=== PATIENT | male | born 1960 | race Caucasian/White ===

== ENCOUNTER 2020-05-27 10:46 | Outpatient (CLI) | payer OTHER, SELFPAY | END 2020-05-27 10:47 | disposition home or self-care (01) | LOC: ANHCOVIDVC 10:46 | PROVIDERS: PCP Family Medicine | DX: Z23 Encounter for immunization (principal) | CPT/HCPCS: 0001A; 91300 ==

== ENCOUNTER 2020-06-17 10:46 | Outpatient (CLI) | payer OTHER, SELFPAY | END 2020-06-17 10:47 | disposition home or self-care (01) | LOC: ANHCOVIDVC 10:46 | PROVIDERS: PCP Family Medicine | DX: Z23 Encounter for immunization (principal) | CPT/HCPCS: 0002A; 91300 ==

== ENCOUNTER → 2020-06-25 16:37 | Outpatient (CLI) | payer OTHER, SELFPAY ==
--- NOTE | ~2020-06-25 | XR_ITS ---
XR cervical spine 4-5V DATE: 06/25/2020 17:02 INDICATION: Cervical radiculopathy TECHNIQUE: AP, lateral, swimmer's, open-mouth views COMPARISON: None FINDINGS: There is dorsal cervical curvature and mild cervical dextroscoliosis. C1 and C2 are normally aligned and the odontoid process is intact. No fracture or dislocation or lock ed facet or prevertebral soft tissue swelling. There is moderately severe degenerative disc disease at C4-5. There is severe degenerative disc disease at C5-6 and C6-7 and C7-T1. There is approximately 3.5 mm anterolisthesis at C7-T1. There is severe hypertrophic degenerative change of the apophyseal joints throughout the cervical spi ne. Uncovertebral joint spurring is noted at C4-5 and particularly C5-6 and C6-7. IMPRESSION: Reversal cervical curvature and mild dextroscoliosis Extensive degenerative changes of the cervical spine Reviewed, dictated and finalized at location A.
== END ==
PROVIDERS: PCP Family Medicine; Visit Provider Family Medicine
DX: M54.12 Radiculopathy, cervical region (principal); M50.30 Other cervical disc degeneration, unspecified cervical region
CPT/HCPCS: 72050

== ENCOUNTER → 2020-07-15 10:15 | Outpatient (CLI) | payer OTHER, SELFPAY ==
--- NOTE | ~2020-07-15 | MR_ITS ---
EXAMINATION: MR cervical spine wo con DATE: 07/15/2020 10:52 INDICATION: Left-sided cervical radiculopathy. Neck pain. TECHNIQUE: Magnetic resonance imaging (MRI) of the cervical spine was performed without intravenous c ontrast. Sequences included sagittal T2-weighted FSE, sagittal STIR FSE, sagittal T1-weighted FSE, ax ial MERGE, and axial T2-weighted FSE. COMPARISON: Cervical spine radiographs 06/25/20 FINDINGS: There is 9 degrees dextrocurvature of cervical spine. There is kyphosis of cervical spine. There is 2 mm retrolisthesis of C5 on C6 and 3 mm anterolisthesis of C7 on T1. Vertebral body heights are normal. There is moderately decreased disc height at C4-C5, severely decreased disc height at C5 -C6, and moderately decreased disc height at C6-C7 and C7-T1. The spinal cord signal intensity is nor mal. The following disc levels are specifically discussed: C2-C3: There is a central protrusion. There is severe right and mild left uncovertebral joint osteoar thritis. There is severe right and moderate left facet joint osteoarthritis. There is mild bilateral neural foraminal stenosis. There is no central canal stenosis. C3-C4: There is a central protrusion. There is severe right and mild left uncovertebral joint osteoar thritis. There is severe right and moderate left facet joint osteoarthritis. There is moderate right and mild left neural foraminal stenosis. There is mild central canal stenosis with ventral indentatio n of spinal cord. C4-C5: The disc is bulging. There is severe bilateral uncovertebral joint osteoarthritis. There is mo derate and severe left facet joint osteoarthritis. There is mild right and moderate left neural gosia inal stenosis. There is mild central canal stenosis with ventral indentation of the spinal cord. C5-C6: The disc is bulging. There is severe bilateral uncovertebral joint osteoarthritis. There is mi ld right facet joint osteoarthritis. There is ankylosis of left facet joint with moderate hypertrophy . There is mild bilateral neural foraminal stenosis. There is mild central canal stenosis. C6-C7: The disc is bulging. There is severe bilateral uncovertebral joint osteoarthritis. There is mi ld bilateral facet joint osteoarthritis. There is moderate right and mild left neural foraminal steno sis. There is mild central canal stenosis. C7-T1: The disc is bulging. There is severe bilateral uncovertebral joint osteoarthritis. There is se ciara bilateral facet joint osteoarthritis. There is moderate and mild left neural foraminal stenosis. There is mild central canal stenosis. IMPRESSION: 1. Severe cervical spondylosis. Reviewed, dictated and finalized at location A.
== END ==
PROVIDERS: PCP Family Medicine; Visit Provider Family Medicine
DX: M47.22 Other spondylosis with radiculopathy, cervical region (principal)
CPT/HCPCS: 72141

== ENCOUNTER 2021-12-02 16:11 | Outpatient (CLI) | payer OTHER, SELFPAY ==
--- NOTE | ~2021-12-02 | US_ITS ---
EXAMINATION: US venous doppler LE RT DATE: 12/02/2021 16:47 INDICATION: M79.89 - Other specified soft tissue disorders . TECHNIQUE: Grayscale images without and with compression and Doppler images of the right lower extrem ity veins were obtained. COMPARISON: None FINDINGS: Occlusive thrombus in the distal popliteal and posterior tibial veins. The right common femoral vein, profunda (deep) femoral vein, femoral vein, proximal popliteal vein, peroneal vein, and greater saph enous vein are patent. IMPRESSION: Acute deep venous thrombosis involving the popliteal and posterior tibial veins. Attempts to reach provider by Dr. Mcghee at the phone number given were unsuccessful. One known office for the provider was closed, the answering service was not able to make contact. Radiology staff clementine Gonzalez then made contact to a second office. Results subsequently reported telephonically to [facility] by radiology staff member Gonzalez at 5:25 PM on 12/02/2021. Dr. Huffman communicated the treatment plan directly to the patient at that time. Reviewed, dictated and finalized at location K. IMPRESSION: Acute deep venous thrombosis involving the popliteal and posterior tibial veins . Attempts to reach provider by Dr. Mcghee at the phone number given were unsucces sful. One known office for the provider was closed, the answering service was n ot able to make contact. Radiology staff member Gonzalez then made contact to a [facility] office. Results subsequently reported telephonically to [facility] by radio logy staff member Gonzalez at 5:25 PM on 12/02/2021. Dr. Huffman communicated the treatment plan directly to the patient at that time.
== END 2021-12-02 16:12 | disposition home or self-care (01) ==
LOC: ANHIMG 16:12
PROVIDERS: PCP Family Medicine; Visit Provider Physician Assistant
DX: M79.89 Other specified soft tissue disorders (principal); I82.441 Acute embolism and thrombosis of right tibial vein
CPT/HCPCS: 93971

== ENCOUNTER 2024-11-12 12:27 | Emergency (ER) | payer OTHER, SELFPAY ==
[2024-11-12 12:40] VITALS: BP 121/79; PULSE 78; RESP 18; TEMP 36.6; O2SAT 99
--- NOTE | 2024-11-12 13:23 | ED_ITS ---
HPI - Back Pain/Injury General Chief Complaint: Back Pain/Injury Stated Complaint: L Leg Pain Time Seen by Provider: 11/12/24 13:23 Source: patient Mode of arrival: ambulatory Limitations: no limitations History of Present Illness HPI Narrative: 64 yo M presents with pain to L buttock/hip radiating down L leg for 2 days. Started after sitting on metal bleachers for sports event. Ambulatory with slight limp. Denies numbness/tingling. No loss of bowel or bladder. Has been taking naproxen and also cyclobenzaprine which is his 's prescription. All systems reviewed and negative except as noted above. Related Data Home Medications ?Medication ?Instructions ?Recorded ?Confirmed ?Last Taken ?Type primidone 50 mg tablet mg PO 11/03/23 05/24/24 Unkn own History Allergies Allergy/AdvReac Type Severity Reaction Status Date / [facility] AdvReac Severe parkinsonis Verified 11/12/24 12:55 m [facility] Past Medical History Medical History Drug-induced parkinsonism Parsonage-Garcia syndrome Trigger point of left shoulder region Overweight (BMI 25.0-29.9) Social History Social History Social History: Caffeine-daily Smoking status: Never smoker Second hand tobacco smoke exposure: No Alcohol intake: current Drinks per week: 1 Alcohol use details: occasionally Substance use: never Substance use type: does not use Lack of Transportation: No Lack of Food: Never True Current Housing: I Have Housing Concerned About Future Housing: No Difficulty Paying Gas/Electric Bills: No Difficulty Paying for Meds: No Currently Unemployed: No Education: Bachelor's Degree Difficulty w/ Childcare or Family Care: No Living arrangements: with family Occupation/Education: occupation Comments At time of signature, agree with nursing past medical, surgical, social and family history. There is no relevant family history pertinent to the presenting complaint. Exam Narrative: GENERAL: This is a well-nourished, well-developed patient, in no apparent distress. HEAD: normocephalic, atraumatic. EYES: PERRL. Sclera clear/white. Vision is grossly intact. EARS: External ears normal NOSE: External nose normal NECK: Neck supple, non-tender without lymphadenopathy, masses or thyromegaly. CARDIOVASCULAR: Regular rate and rhythm without murmurs, gallops, or rubs. RESPIRATORY: Clear to auscultation. Breath sounds equal bilaterally. No wheezes, rales, or rhonchi. SKIN: warm, Dry, intact with no suspicious lesions or rash, good texture and turgor. NEURO: awake, alert, and oriented to person, place and time. There were no obvious focal neurologic abnormalities. EXTREMITIES: No joint tenderness, effusion, or edema noted. Lower extremity strength 5/5 bilaterally. Positive left straight leg raise. BACK: No midline tenderness. Tender to left SI on palpation. Course Course Level of Care: Express Care Visit Vital Signs Vital signs: Vital Signs Temperature 36.6 C 11/12/24 12:40 Pulse Rate 78 11/12/24 12:40 Respiratory Rate 18 11/12/24 12:40 Blood Pressure 121/79 11/12/24 12:40 Pulse Oximetry 99 11/12/24 12:40 Oxygen Delivery Room Air 11/12/24 12:40 Temperature 36.6 C 11/12/24 12:40 Pulse Rate 78 11/12/24 12:40 Respiratory Rate 18 11/12/24 12:40 Blood Pressure 121/79 11/12/24 12:40 Pulse Oximetry 99 11/12/24 12:40 Oxygen Delivery Room Air 11/12/24 12:40 Reviewed MDM - Back Pain/Injury MDM Narrative Medical decision making narrative: Will treat sciatic back pain with prednisone, cyclobenzaprine. Will continue naproxen. Patient given sciatic stretches. Recommend ice and heat. Will follow-up with primary care physician if pain is not improving. Will go to the ER for any worsening of symptoms. No neuro deficits at time of discharge. Differential Diagnosis Differential diagnosis: Likely lumbar radiculopathy, sciatica and strain of lumbar region Discharge Plan Discharge Clinical Impression: Sciatica of left side Patient Disposition: Home Condition: Stable Instructions: Sciatica (ED), Lower Back Exercises (ED) Additional Instructions: Take medications as prescribed. Continue taking naproxen as directed on packaging. May take Tylenol every 6-8 hours as needed for pain. Do sciatica stretches as tolerated. Alternate between ice and heat. See your primary care physician if symptoms are not improving. If you have weakness to lower extremities and her unable to walk, loss of bowel or bladder, severe back pain go to the ER. Patient Language: Greenlandic Prescriptions: New prednisone 20 mg tablet See Rx Instructions .ROUTE .COMPLEX Qty: 12 0RF Rx Instructions: Take 3 tablets today, then 2 tablets daily for 3 days then 1 tablet daily for 3 days. cyclobenzaprine 10 mg tablet 10 mg PO Q12H PRN (Reason: muscle spasm) Qty: 20 0RF No Action primidone 50 mg tablet PO vilazodone [Viibryd] 20 mg tablet 20 mg PO DAILY Qty: 90 1RF Rx Instructions: must administer with a meal/food take with 40 mg to equal 60mg q day vilazodone [Viibryd] 40 mg tablet See Rx Instructions .ROUTE .COMPLEX Qty: 90 1RF Dose Instruction: TAKE 1 TABLET BY MOUTH DAILY MUST ADMINISTER WITH A MEAL/FOOD Rx Instructions: TAKE 1 TABLET BY MOUTH DAILY MUST ADMINISTER WITH A MEAL/FOOD. Take with the 20mg tablets to equal 60mg propranolol 60 mg capsule,extended release 24 hr 60 mg PO DAILY Qty: 90 1RF sildenafil (pulm.hypertension) 20 mg tablet 20 mg PO DAILY PRN (Reason: sexual activity) Qty: 30 5RF bupropion HCl 150 mg tablet extended release 24 hr See Rx Instructions .ROUTE .COMPLEX Qty: 90 1RF Dose Instruction: TAKE 1 TABLET BY MOUTH EVERY MORNING Rx Instructions: TAKE 1 TABLET BY MOUTH EVERY MORNING/ rake with 300 mg to equal 450 mg q day methylphenidate HCl [Concerta] 18 mg tablet extended release 24hr 18 mg PO QAM Qty: 30 0RF bupropion HCl 300 mg tablet extended release 24 hr See Rx Instructions .ROUTE .COMPLEX Qty: 90 1RF Dose Instruction: TAKE 1 TABLET BY MOUTH EVERY MORNING Rx Instructions: TAKE 1 TABLET BY MOUTH EVERY MORNING/take with 150 mg to equal 450 mg q day Follow-up/Referrals: Adalberto Huffman MD [Primary Care Provider, [facility]] Time of Disposition: 13:34
== END 2024-11-12 13:40 | disposition home or self-care (01) ==
PROVIDERS: Emergency Provider Nurse Practitioner Family; PCP Family Medicine
DX: M54.32 Sciatica, left side (principal); G54.5 Neuralgic amyotrophy; G21.19 Other drug induced secondary parkinsonism
CPT/HCPCS: 99213; G0463